=== PATIENT | female | born 1975 | race Caucasian/White ===

== ENCOUNTER 2021-04-11 04:20 | Emergency (ER) | payer MEDICARE, MEDICAID ==
[2021-04-11 04:39] VITALS: BP 144/82; PULSE 114
--- NOTE | 2021-04-11 05:05 | EDM.PDOC ---
ED HPI GENERAL MEDICAL PROBLEM - General Chief Complaint: Abdominal Pain Stated Complaint: FEVER/ABD PAIN Time Seen by Provider: 04/11/21 04:49 Source of Information: Reports: Patient History Limitations: Reports: No Limitations - History of Present Illness INITIAL COMMENTS - FREE TEXT/NARRATIVE: Mindi is a 45-year-old female presenting to the ED with a multitude of complaints including headache, fever, sore throat, decreased appetite, body aches, cough, shortness of breath, abdominal pain, nausea, vomiting, and diarrhea. The patient is unvaccinated for coronavirus. She lives with her son and boyfriend who work outside of the home. She reports that she was recently hospitalized at [facility] where she was told she had a small bowel obstruction. 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 She states that she was hospitalized at [facility] from 03/21/2021 to 03/27/2021 and at that time was told that she needed to have a small bowel resection for partial small bowel obstruction, however, it appears to have resolved without the requirement of surgery. She states that her current symptoms started 2 days ago. She has had a fever as high as 102 F. Abdomen Pain Score (Numeric/FACES): 10 - Related Data Allergies Allergy/AdvReac Type Severity Reaction Status Date / Time latex Allergy Itching Verified 04/11/21 04:40 Home Meds: Home Meds Calcium Carbonate/Vitamin D3 [Calcarb 600 with Vit D] 1 tab PO BID 04/18/13 [History] Cholecalciferol (Vitamin D3) [Vitamin D3] 5,000 unit PO DAILY 04/18/13 [History] Cyanocobalamin (Vitamin B-12) [Liquid B-12] 1,000 mcg PO Q30D 04/18/13 [History] Pediatric Multivit #36/Iron [Vitalets Tablet Chewable] 10 mg PO BID 04/18/13 [History] Vitamin B Complex [B-100 Complex] 1 each PO DAILY 04/18/13 [History] Acetaminophen [Tylenol Arthritis Pain] 650 mg PO ASDIRECTED PRN 08/22/13 [History] Norethindrone-Ethin. Estradiol [Dasetta - Tablet] 35 mg PO DAILY 02/06/14 [History] Docusate Sodium/Sennosides [Senokot-S] 2 each PO BEDTIME 12/21/13 [History] polyethylene glycoL 3350 [Miralax] 17 gm PO DAILY 12/21/13 [History] Social & Family History - Tobacco Use Tobacco Use Status *Q: Heavy Tobacco User Years of Tobacco use: 30 Packs/Tins Daily: 0.5 - Recreational Drug Use Recreational Drug Use: No ED ROS GENERAL - Review of Systems Review Of Systems: See Below Constitutional: Reports: Fever, Chills, Malaise, Weakness, Decreased Appetite HEENT: Reports: Throat Pain Respiratory: Reports: Shortness of Breath, Cough Cardiovascular: Reports: No Symptoms Endocrine: Reports: Fatigue GI/Abdominal: Reports: Abdominal Pain, Diarrhea, Nausea, Vomiting : Reports: No Symptoms Musculoskeletal: Reports: Muscle Pain Skin: Reports: No Symptoms Neurological: Reports: Headache Psychiatric: Reports: Anxiety Hematologic/Lymphatic: Reports: No Symptoms Immunologic: Reports: No Symptoms ED EXAM, GI/ABD - Physical Exam Exam: See Below Exam Limited By: No Limitations General Appearance: Alert, Anxious, Mild Distress, Obese Eyes: Bilateral: EOMI Nose: Normal Inspection, Normal Mucosa Throat/Mouth: Normal Inspection, Normal Oropharynx, Normal Voice, No Airway Compromise Head: Atraumatic, Normocephalic Neck: Normal Inspection, Supple, Non-Tender, Full Range of Motion. No: L ymphadenopathy (R), Lymphadenopathy (L) Respiratory/Chest: No Respiratory Distress, Lungs Clear, Normal Breath Sounds Cardiovascular: Normal Peripheral Pulses, Regular Rate, Rhythm, Tachycardia, Systolic Murmur (2/6 holosystolic murmur in the apex) GI/Abdominal Exam: Normal Bowel Sounds, Tender (Mild diffuse tenderness), Ab normal Bowel Sounds (Diminished bowel sounds). No: Guarding, Rebound Extremities: Normal Inspection, Normal Range of Motion Neurological: Alert, Oriented, Normal Cognition, No Motor/Sensory Deficits Psychiatric: Anxious, Other (Odd effect) Skin Exam: Warm, Dry, Intact, Normal Color Course - Vital Signs Last Recorded V/S: Last Vital Signs Temp 36.8 C 04/11/21 04:38 Pulse 114 H 04/11/21 04:38 Resp 20 04/11/21 04:38 BP 144/82 H 04/11/21 04:38 Pulse Ox 98 04/11/21 04:38 - Orders/Labs/Meds Orders: Active Orders 24 hr Category Date Time Status Abdomen Pelvis wo Cont [CT] Stat Exams 04/11/21 04:50 Ordered CBC WITH AUTO DIFF [HEME] Stat Lab 04/11/21 04:50 Ordered COMPREHENSIVE METABOLIC PN,CMP [CHEM] Stat Lab 04/11/21 04:50 Ordered CORONAVIRUS COVID-19 ANDI [MOLEC] Stat Lab 04/11/21 04:50 Ordered - Radiology Interpretation Free Text/Narrative:: I reviewed the images of the CT of the abdomen pelvis without contrast as well as the report from [facility]. The report is as follows: IMPRESSIONS: 1. The sensitivity and specificity of the exam are severely limited by artifacts from the patient`s inability to maintain a breath hold. 2. Near a small bowel anastomosis in the right lower quadrant on images 100-108, there is a segment of small bowel with moderate concentric wall thickening. Clinical correlation is recommended to exclude Crohn`s disease, enteritis, or focal small bowel ischemia. 3. On image 114, the terminal ileum appears stretched within the right lower quadrant. This configuration of small bowel is new compared to prior examination. The possibility of an internal hernia should be considered. Dictated by Osmany Kendrick MD @ 04/11/2021 6:05:38 AM - Re-Assessments/Exams Free Text/Narrative Re-Assessment/Exam: 04/11/21 05:57 I reviewed the patient's labs with leukocyte count of 5.3, hemoglobin of 12.7, hematocrit of 37.8, and a platelet count of 149,000. She is 74% neutrophils. Her comprehensive metabolic panel is unremarkable with a sodium 137, potassium 3.9, chloride 100, bicarbonate of 25, BUN of 13 with a creatinine of 0.7 and a glucose of 101. The patient is positive for coronavirus. She is unvaccinated and has comorbidities including gastric bypass causing some malabsorption and morbid obesity. She would qualify for monoclonal antibody therapy should she choose. Her abdominal CT without contrast did not demonstrate any sign of obstruction. She had a copious amount of gas throughout the abdomen without evidence for free air. There were no air- fluid levels. I will notify Dr. Hampton's assistant hvac mechanic, Es of the patient's Covid status and her presenting symptoms. The patient is not hypoxic at this time and will likely need to go home to quarantine. A work note has been given to the patient taking her off for the next 10 to 14 days. 04/11/21 06:09 CT of the abdomen and pelvis demonstrated 2 areas of concern in the small bowel, one at the terminal ileum which may represent an internal hernia and the other in a segment of the small bowel that has wall thickening that may represent either Crohn's or an acute inflammatory enteritis. I will discussed both of these endings with Dr. Hampton's assistant hvac mechanic, Es. She reviewed the CT report and agrees that we should probably keep the patient on a liquid diet until she follows up after 14 days. Departure - Departure Time of Disposition: 06:05 Disposition: Home, Self-Care 01 Clinical Impression: COVID-19, Internal hernia - Discharge Information Instructions: COVID-19: What to Do If You Are Sick- [facility] (09/30/2020), COVID-19: Quarantine vs. Isolation - [facility] (07/02/2020), COVID-19: How to Protect Yourself and Others - [facility] Referrals: PCP,None [Primary Care Provider] - Care Plan Goals: Your work-up today has demonstrated that you have developed COVID-19. You are instructed to go home and remain in quarantine for 10 to 14 days. A work note has been provided for you for this. Should you become sufficiently short of breath, significantly dehydrated, or experience generalized weakness and are unable to get out of bed, then you should probably return to the ED for reevaluation. If you decide that you want to receive the monoclonal antibodies, please contact your primary care provider or Es who can schedule that. It needs to be administered within the 1st 10 days from the onset of symptoms to be of benefit. I spoke with Es concerning your CAT scan findings and she would like you to stay on a liquid diet for the next 10 to 14 days until you can follow-up with her in the clinic once your COVID-19 infection has cleared. Sepsis Event Note (ED) - Evaluation Sepsis Screening Result: No Definite Risk - Focused Exam Vital Signs: Vital Signs Temp Pulse Resp BP Pulse Ox 04/11/21 04:38 36.8 C 114 H 20 144/82 H 98 - Problem List & Annotations (1) COVID-19 SNOMED Code(s): 403635249 Code(s): U07.1 - COVID-19 Status: Acute Priority: High Current Visit: Yes (2) Internal hernia SNOMED Code(s): 78936740 Code(s): K45.8 - OTH ABDOMINAL HERNIA WITHOUT OBSTRUCTION OR GANGRENE Status: Acute Priority: High Current Visit: Yes (3) Ricki-en-Y gastrojejunostomy SNOMED Code(s): 964657967 - Ricki-en-Y gastrojejunostomy Status: Chronic Priority: High Current Visit: No Onset Date: 04/16/11 - Problem List Review Problem List Initiated/Reviewed/Updated: Yes - My Orders Last 24 Hours: My Active Orders 04/11/21 04:50 Abdomen Pelvis wo Cont [CT] Stat CBC WITH AUTO DIFF [HEME] Stat COMPREHENSIVE METABOLIC PN,CMP [CHEM] Stat CORONAVIRUS COVID-19 ANDI [MOLEC] Stat - Assessment/Plan Last 24 Hours: My Active Orders 04/11/21 04:50 Abdomen Pelvis wo Cont [CT] Stat CBC WITH AUTO DIFF [HEME] Stat COMPREHENSIVE METABOLIC PN,CMP [CHEM] Stat CORONAVIRUS COVID-19 ANDI [MOLEC] Stat
--- NOTE | 2021-04-11 06:07 | CRLCT ---
For Patients: As a result of the Century Cures Act, medical imaging exams and procedure reports are released immediately into your electronic medical record. You may view this report before your referring provider. If you have questions, please contact your health care provider. INDICATION: Abdominal pain. History recent bowel obstruction TECHNIQUE: CT Abdomen and pelvis without i.v. contrast. Coronal and sagittal reformats were obtained. COMPARISON: 08/18/2014 FINDINGS: The sensitivity and specificity of the exam are severely limited by artifacts from the patient`s inability to maintain a breath hold. Lower chest: Unremarkable. Liver: Unremarkable. Spleen: Unremarkable. Pancreas: Unremarkable. Gallbladder: Previous cholecystectomy noted without significant intra- or extrahepatic biliary ductal dilatation seen. Kidney: Peripelvic cysts are present in the renal sinus bilaterally without significant interval change. Adrenal: Unremarkable. Bowel: Gastric bypass surgery is noted. Surgical clips are present along the medial cecum which may be due to prior appendectomy. Near a small bowel anastomosis in the right lower quadrant on images 100-108, there is a segment of small bowel with moderate concentric wall thickening. On image 114, the terminal ileum appears stretched within the right lower quadrant. Moderate gaseous distention of the redundant colon is present which may be due to colonic ileus or prolonged supine positioning. Vascular: Unremarkable. Lymph: Unremarkable. Peritoneum: Unremarkable. No pneumoperitoneum is seen. No significant ascites is noted. Pelvis: Unremarkable. Soft tissue: Unremarkable. Bone: Unremarkable for age. IMPRESSIONS: 1. The sensitivity and specificity of the exam are severely limited by artifacts from the patient`s inability to maintain a breath hold. 2. Near a small bowel anastomosis in the right lower quadrant on images 100-108, there is a segment of small bowel with moderate concentric wall thickening. Clinical correlation is recommended to exclude Crohn`s disease, enteritis, or focal small bowel ischemia. 3. On image 114, the terminal ileum appears stretched within the right lower quadrant. This configuration of small bowel is new compared to prior examination. The possibility of an internal hernia should be considered. Dictated by Osmany Kendrick MD @ 04/11/2021 6:05:38 AM Please note that all CT scans at this facility use dose modulation, iterative reconstruction, and/or weight-based dosing when appropriate to reduce radiation dose to as low as reasonably achievable. Dictated by: Osmany Kendrick MD @ 04/11/2021 06:05:45 (Electronically Signed)
== END 2021-04-11 06:29 | disposition home or self-care (01) ==
LOC: JP.ED 04:20
DX: U07.1 COVID-19 (principal); K46.9 Unspecified abdominal hernia without obstruction or gangrene; F17.210 Nicotine dependence, cigarettes, uncomplicated; Z91.040 Latex allergy status; Z79.899 Other long term (current) drug therapy
CPT/HCPCS: 36415; 74176; 80053; 85025; 99284; U0002

== ENCOUNTER 2022-04-24 09:45 | Inpatient (IN) | payer MEDICARE, MEDICAID ==
[2022-04-24] MEDS ORDERED: Iopamidol 612 MG/ML 100 ML Bottle IV SCH (10:30)
[2022-04-24] MEDS ORDERED: Ketorolac 30 MG/ML SDV ONE (10:45)
[2022-04-24] MEDS ORDERED: Sodium Chloride 0.9% 1,000 ML IV ONE (10:45)
[2022-04-24] MEDS ORDERED: Ondansetron 4 MG/2 ML SDV ONE (10:45)
[2022-04-25] MEDS ORDERED: Lactated Ringers 1,000 ML IV ONE (08:00)
[2022-04-25] MEDS ORDERED: Glycopyrrolate 0.2 MG/ML 5 ML MDV ONE (08:00)
[2022-04-25] MEDS ORDERED: Rocuronium 50 MG/5 ML Vial ONE (08:00)
[2022-04-25] MEDS ORDERED: Lidocaine 1% with EPINEPHrine 1:100,000 50 ML MDV ONE (08:00)
[2022-04-25] MEDS ORDERED: Succinylcholine 200 MG/10 ML MDV ONE (08:00)
[2022-04-25] MEDS ORDERED: Ondansetron 4 MG/2 ML SDV ONE (08:00)
[2022-04-25] MEDS ORDERED: Bupivacaine 0.5% 50 ML MDV ONE (08:00)
[2022-04-25] MEDS ORDERED: Meropenem 500 MG SDV ONE (08:00)
[2022-04-25] MEDS ORDERED: Neostigmine Methylsulfate 1 MG/ML 5 ML Syringe ONE (08:00)
[2022-04-25] MEDS ORDERED: fentaNYL 100 MCG/2 ML SDV ONE ×3 (08:00)
[2022-04-25] MEDS ORDERED: Dexamethasone 4 MG/ML SDV ONE (08:00)
[2022-04-25] MEDS ORDERED: Propofol 200 MG/20 ML SDV ONE (08:00)
[2022-04-25] MEDS ORDERED: Ketamine 18 MG in Sodium Chloride 0.9% 19.82 ML IV SCH (10:00)
[2022-04-25] MEDS ORDERED: Ketamine 500 MG/5 ML MDV IV SCH (10:00)
[2022-04-26] MEDS ORDERED: Ketamine 18 MG in Sodium Chloride 0.9% 19.82 ML IV SCH (10:00)
[2022-04-26] MEDS ORDERED: Ketamine 500 MG/5 ML MDV IV SCH (10:00)
[2022-04-29] MEDS ORDERED: Ketamine 500 MG/5 ML MDV IV SCH (09:45)
[2022-04-29] MEDS ORDERED: Ketamine 18 MG in Sodium Chloride 0.9% 19.82 ML IV SCH (09:45)
[2022-05-20 16:40] LABS: ESTIMATED GFR 109 mL/min (>60)
[2022-05-23 13:53] LABS: ESTIMATED GFR 93 mL/min (>60)
[2022-05-25 04:56] LABS: NICOTINAMIDE SEE SEP RPT; NICOTINIC ACID SEE SEP RPT; VITAMIN E(ALPHA TOCOPHEROL) SEE SEP RPT; VITAMIN E(GAMMA TOCOPHEROL) SEE SEP RPT
== END 2022-04-29 10:00 | disposition home or self-care (01) | DRG 330 ==
LOC: JP.ED 09:45 → JP.ZCENSUS 13:46
PROVIDERS: ADMIT Student in an Organized Health Care Education/Training Program; ATTEND Student in an Organized Health Care Education/Training Program
PROC: 0DB80ZZ Excision of Small Intestine, Open Approach (ICD-10-PCS; principal; 2022-04-25)
PROC: 0DQ80ZZ Repair Small Intestine, Open Approach (ICD-10-PCS; 2022-04-25)
PROC: 3E0M05Z Introduction of Adhesion Barrier into Peritoneal Cavity, Open Approach (ICD-10-PCS; 2022-04-25)
PROC: 0DJ08ZZ Inspection of Upper Intestinal Tract, Via Natural or Artificial Opening Endoscopic (ICD-10-PCS; 2022-04-25)
DX: K95.89 Other complications of other bariatric procedure (principal); K56.600 Partial intestinal obstruction, unspecified as to cause; Y83.8 Other surgical procedures as the cause of abnormal reaction of the patient, or of later complication, without mention of misadventure at the time of the procedure; R33.9 Retention of urine, unspecified; F32.A Depression, unspecified; Z90.49 Acquired absence of other specified parts of digestive tract; Z98.84 Bariatric surgery status; Z88.8 Allergy status to other drugs, medicaments and biological substances; Z91.040 Latex allergy status
CPT/HCPCS: 36415; 51798; 74177; 80048; 80053; 82180; 82306; 82607; 82728; 82746; 83540; 83690; 83735; 84100; 84207; 84425; 84446; 84590; 84591; 84597; 85025; 85027; 85610; 88307; 94762; J0171; J0330; J1100; J1885; J2020; J2185; J2405; J2704; J2710; J2795; J3010; J3490; J7030; J7120; Q9967; U0002

== ENCOUNTER 2022-05-16 11:55 | Inpatient (IN) | payer MEDICARE, MEDICAID ==
[2022-05-16] MEDS ORDERED: Sodium Chloride 0.9% 10 ML Syringe FLUSH PRN (15:57)
[2022-05-16] MEDS ORDERED: fentaNYL 100 MCG/2 ML SDV IVPUSH ONE (15:58)
[2022-05-16] MEDS ORDERED: Ondansetron 4 MG/2 ML SDV IVPUSH ONE (15:58)
[2022-05-16] MEDS ORDERED: Lactated Ringers 1,000 ML IV SCH (16:00)
[2022-05-16 16:33] LABS: ESTIMATED GFR 109 mL/min (>60)
[2022-05-16] MEDS ORDERED: fentaNYL 50 MCG/ML SDV IVPUSH PRN (17:18)
[2022-05-16] MEDS: Lactated Ringers 1,000 ML IV SCH (18:35)
[2022-05-16] MEDS: hydrOXYzine HCl 25 MG Tab PO PRN (19:27)
[2022-05-16] MEDS ORDERED: Iopamidol 612 MG/ML 100 ML Bottle IV PRN (21:35)
[2022-05-16] MEDS ORDERED: Sodium Chloride 0.9% 50 ML IV SCH (21:45)
[2022-05-16] MEDS: Celecoxib 200 MG Cap PO SCH (22:01)
[2022-05-16] MEDS: Calcium Carbonate/Vitamin D3 1500 MG-400 Units Tab PO SCH (22:01)
[2022-05-16] MEDS: Multivitamins with Iron Tab.Chew PO SCH (22:03)
[2022-05-17] MEDS: Lactated Ringers 1,000 ML IV SCH ×3 (02:54→20:48)
[2022-05-17] MEDS ORDERED: Naloxone 0.4 MG/ML SDV IVPUSH PRN (03:12)
[2022-05-17] MEDS: HYDROmorphone/Normal Saline 6 MG/30 ML PCA Vial IV PRN ×2 (03:55→16:40)
[2022-05-17 04:53] LABS: ESTIMATED GFR 113 mL/min (>60)
[2022-05-17] MEDS: Ondansetron 4 MG/2 ML SDV IV PRN ×3 (05:21→17:20)
[2022-05-17] MEDS ORDERED: Acetaminophen 325 MG Tab PO PRN (07:04)
[2022-05-17] MEDS: Multivitamins with Iron Tab.Chew PO SCH ×2 (09:09→20:50)
[2022-05-17] MEDS: Cholecalciferol (Vitamin D3) 25 MCG Tab PO SCH (09:09)
[2022-05-17] MEDS: Calcium Carbonate/Vitamin D3 1500 MG-400 Units Tab PO SCH ×2 (09:09→20:50)
[2022-05-17] MEDS: Celecoxib 200 MG Cap PO SCH ×2 (09:09→20:50)
[2022-05-17] MEDS: Vitamin B Complex Tab PO SCH (09:09)
[2022-05-17] MEDS: Linezolid 600 MG in Premix Bag 1 BAG IV SCH ×2 (09:10→20:48)
[2022-05-17] MEDS ORDERED: Polyethylene Glycol 3350 Powder 119 GM Bottle PO ONE (10:00)
[2022-05-17] MEDS: Piperacillin/Tazobactam/Dext 3.375 GM in Premix Bag 1 BAG IV SCH ×3 (10:35→22:05)
[2022-05-17] MEDS ORDERED: Bisacodyl 5 MG Tab PO ONE (16:00)
[2022-05-18] MEDS: Piperacillin/Tazobactam/Dext 3.375 GM in Premix Bag 1 BAG IV SCH (03:43)
[2022-05-18] MEDS: Cyclobenzaprine 10 MG Tab PO PRN ×2 (04:03→20:18)
[2022-05-18 04:43] LABS: ESTIMATED GFR 81 mL/min (>60)
[2022-05-18] MEDS: hydrOXYzine HCl 25 MG Tab PO PRN (07:25)
[2022-05-18] MEDS: HYDROmorphone/Normal Saline 6 MG/30 ML PCA Vial IV PRN ×2 (07:44→19:51)
[2022-05-18] MEDS: Linezolid 600 MG in Premix Bag 1 BAG IV SCH ×2 (08:01→20:07)
[2022-05-18] MEDS ORDERED: Iopamidol 612 MG/ML 100 ML Bottle IV PRN (09:05)
[2022-05-18] MEDS ORDERED: Sodium Chloride 0.9% 100 ML IV SCH (09:15)
[2022-05-18] MEDS: Vitamin B Complex Tab PO SCH (09:38)
[2022-05-18] MEDS: Celecoxib 200 MG Cap PO SCH ×2 (09:38→20:07)
[2022-05-18] MEDS: Cholecalciferol (Vitamin D3) 25 MCG Tab PO SCH (09:38)
[2022-05-18] MEDS: Calcium Carbonate/Vitamin D3 1500 MG-400 Units Tab PO SCH ×2 (09:38→20:07)
[2022-05-18] MEDS: Multivitamins with Iron Tab.Chew PO SCH ×2 (09:38→20:08)
[2022-05-18] MEDS: Meropenem 1 GM in Sodium Chloride 0.9% 100 ML IV SCH ×2 (10:32→17:23)
[2022-05-18] MEDS: Lactated Ringers 1,000 ML IV SCH (17:24)
[2022-05-19] MEDS: Meropenem 1 GM in Sodium Chloride 0.9% 100 ML IV SCH ×2 (01:25→10:36)
[2022-05-19] MEDS: Lactated Ringers 1,000 ML IV SCH (03:50)
[2022-05-19 05:14] LABS: ESTIMATED GFR 93 mL/min (>60)
[2022-05-19] MEDS: HYDROmorphone/Normal Saline 6 MG/30 ML PCA Vial IV PRN ×2 (05:39→18:49)
[2022-05-19] MEDS: Linezolid 600 MG in Premix Bag 1 BAG IV SCH (09:08)
[2022-05-19] MEDS ORDERED: Rocuronium 50 MG/5 ML Vial ONE (09:56)
[2022-05-19] MEDS ORDERED: Ondansetron 4 MG/2 ML SDV ONE (09:56)
[2022-05-19] MEDS ORDERED: Dexamethasone 4 MG/ML SDV ONE (09:56)
[2022-05-19] MEDS ORDERED: Succinylcholine 200 MG/10 ML MDV ONE (09:56)
[2022-05-19] MEDS ORDERED: Propofol 200 MG/20 ML SDV ONE (09:56)
[2022-05-19] MEDS ORDERED: Glycopyrrolate 0.2 MG/ML 5 ML MDV ONE (09:56)
[2022-05-19] MEDS ORDERED: Neostigmine Methylsulfate 1 MG/ML 5 ML Syringe ONE (09:56)
[2022-05-19] MEDS: Celecoxib 200 MG Cap PO SCH (10:28)
[2022-05-19] MEDS: Calcium Carbonate/Vitamin D3 1500 MG-400 Units Tab PO SCH (10:28)
[2022-05-19] MEDS: Multivitamins with Iron Tab.Chew PO SCH (10:29)
[2022-05-19] MEDS: Cholecalciferol (Vitamin D3) 25 MCG Tab PO SCH (10:29)
[2022-05-19] MEDS: Vitamin B Complex Tab PO SCH (10:29)
[2022-05-19] MEDS ORDERED: Ketamine 500 MG/5 ML MDV IV SCH ×3 (11:00)
[2022-05-19] MEDS ORDERED: Ropivacaine 50 ML, dexAMETHasone 8 MG, EPINEPHrine 0.4 MG, Sodium Chloride 0.9% 27.6 ML NERVRT SCH ×4 (11:00)
[2022-05-19] MEDS ORDERED: Ketamine 18 MG in Sodium Chloride 0.9% 19.82 ML IV SCH (11:00)
[2022-05-19] MEDS ORDERED: Lidocaine 1% with EPINEPHrine 1:100,000 50 ML MDV ONE (12:12)
[2022-05-19] MEDS ORDERED: Meropenem 500 MG SDV ONE (12:12)
[2022-05-19] MEDS ORDERED: Bupivacaine 0.5% 50 ML MDV ONE (12:12)
[2022-05-19] MEDS ORDERED: cefOXitin 2 GM Vial ONE (12:12)
[2022-05-19] MEDS ORDERED: Lactated Ringers 1,000 ML ONE (12:44)
[2022-05-19] MEDS ORDERED: Linezolid 600 MG/300 ML Premix Bag IRR ONE (13:31)
[2022-05-19] MEDS ORDERED: Sugammadex Sodium 200 MG/2 ML VIAL ONE (14:14)
[2022-05-19] MEDS ORDERED: Naloxone 0.4 MG/ML SDV IVPUSH PRN (15:05)
[2022-05-19] MEDS ORDERED: hydrOXYzine HCL 100 MG/2 ML SDV IM PRN (15:15)
[2022-05-19] MEDS ORDERED: Metoclopramide 10 MG/2 ML SDV IVPUSH PRN (15:15)
[2022-05-19] MEDS ORDERED: Labetalol 20 MG/4 ML Syringe IVPUSH PRN (15:15)
[2022-05-19] MEDS ORDERED: Acetaminophen 500 MG Tab PO PRN (15:15)
[2022-05-19] MEDS ORDERED: diphenhydrAMINE 50 MG/ML SDV IVPUSH PRN (15:15)
[2022-05-19] MEDS: Acetaminophen 500 MG Tab PO SCH ×2 (15:54→21:30)
[2022-05-19] MEDS ORDERED: MVI, Adult with Vitamin K 10 ML, Thiamine 200 MG, Zinc/Copper/Manganese/Selenium 1 ML i... IV SCH ×4 (16:00)
[2022-05-19] MEDS ORDERED: Pantoprazole 40 MG Vial IVPUSH SCH (16:00)
[2022-05-19] MEDS: Meropenem 500 MG in Sodium Chloride 0.9% 50 ML IV SCH ×2 (17:23→23:30)
[2022-05-19] MEDS: Heparin Sodium 5,000 Units/ML Vial SUBCUT SCH (21:30)
[2022-05-19] MEDS: Dextrose 5%-Lactated Ringers 1,000 ML IV SCH (23:31)
[2022-05-20] MEDS: Cyclobenzaprine 10 MG Tab PO PRN (00:35)
[2022-05-20] MEDS ORDERED: Iopamidol 612 MG/ML 50 ML SDV PO STA (02:50)
[2022-05-20] MEDS: Acetaminophen 500 MG Tab PO SCH ×3 (05:01→21:17)
[2022-05-20] MEDS: Meropenem 500 MG in Sodium Chloride 0.9% 50 ML IV SCH ×2 (05:01→13:43)
[2022-05-20] MEDS: HYDROmorphone/Normal Saline 6 MG/30 ML PCA Vial IV PRN (05:45)
[2022-05-20] MEDS ORDERED: Ondansetron 4 MG Tab.DIS PO PRN (07:14)
[2022-05-20] MEDS ORDERED: hydrOXYzine HCl 25 MG Tab PO PRN (07:19)
[2022-05-20] MEDS: Dextrose 5%-Lactated Ringers 1,000 ML IV SCH (07:41)
[2022-05-20] MEDS: Docusate Sodium 100 MG Cap PO SCH ×2 (08:19→20:45)
[2022-05-20] MEDS: Bisacodyl 5 MG Tab PO SCH ×2 (08:19→20:45)
[2022-05-20] MEDS: Celecoxib 200 MG Cap PO SCH ×2 (08:20→20:45)
[2022-05-20] MEDS: SCOPOLAMINE PATCH CHECK TOP SCH (08:20)
[2022-05-20] MEDS: Heparin Sodium 5,000 Units/ML Vial SUBCUT SCH ×2 (09:02→20:45)
[2022-05-20] MEDS: oxyCODONE 5 MG Tab PO PRN ×2 (10:03→19:42)
[2022-05-20] MEDS ORDERED: Benzocaine/Cetylpyridinium/Menthol Lozenge MUCMEM PRN (15:22)
[2022-05-20] MEDS ORDERED: Pantoprazole 40 MG Tab.CR PO SCH (16:00)
[2022-05-21] MEDS: oxyCODONE 5 MG Tab PO PRN (03:38)
[2022-05-21] MEDS: Acetaminophen 500 MG Tab PO SCH (05:50)
[2022-05-21 07:12] VITALS: BP 128/81; PULSE 62
[2022-05-21 07:18] LABS: ESTIMATED GFR 109 mL/min (>60)
[2022-05-21] MEDS: Bisacodyl 5 MG Tab PO SCH (08:27)
[2022-05-21] MEDS: Cyclobenzaprine 10 MG Tab PO PRN (08:27)
[2022-05-21] MEDS: Heparin Sodium 5,000 Units/ML Vial SUBCUT SCH (08:28)
[2022-05-21] MEDS: SCOPOLAMINE PATCH CHECK TOP SCH (08:28)
[2022-05-21] MEDS: Docusate Sodium 100 MG Cap PO SCH (08:28)
[2022-05-21] MEDS: Celecoxib 200 MG Cap PO SCH (08:28)
[2022-05-21] MEDS ORDERED: Cyanocobalamin (Vitamin B12) 1,000 MCG/ML SDV IM ONE (09:00)
[2022-05-28] MEDS ORDERED: Cyanocobalamin (Vitamin B12) 1,000 MCG/ML SDV IM SCH (09:00)
== END 2022-05-21 08:53 | disposition home or self-care (01) | DRG 330 ==
LOC: JP.ED 11:55 → JP.MS 17:15 → OBSVTOIN 05-18 09:43
PROVIDERS: ADMIT Surgery; ATTEND Surgery
PROC: 0DB80ZZ Excision of Small Intestine, Open Approach (ICD-10-PCS; principal; 2022-05-19)
PROC: 0DBW0ZZ Excision of Peritoneum, Open Approach (ICD-10-PCS; 2022-05-19)
PROC: 3E0M05Z Introduction of Adhesion Barrier into Peritoneal Cavity, Open Approach (ICD-10-PCS; 2022-05-19)
DX: R10.84 Generalized abdominal pain (principal); K95.89 Other complications of other bariatric procedure; K56.50 Intestinal adhesions [bands], unspecified as to partial versus complete obstruction; E66.9 Obesity, unspecified; N39.0 Urinary tract infection, site not specified; K66.9 Disorder of peritoneum, unspecified; Z20.822 Contact with and (suspected) exposure to COVID-19; Z98.890 Other specified postprocedural states; K21.9 Gastro-esophageal reflux disease without esophagitis; M54.9 Dorsalgia, unspecified; G89.29 Other chronic pain; F41.9 Anxiety disorder, unspecified; F32.A Depression, unspecified; Z90.49 Acquired absence of other specified parts of digestive tract; Z88.5 Allergy status to narcotic agent; Z91.040 Latex allergy status; F17.210 Nicotine dependence, cigarettes, uncomplicated; F12.10 Cannabis abuse, uncomplicated; Z79.899 Other long term (current) drug therapy
CPT/HCPCS: 36415 ×3; 51702; 74018 ×2; 74177 ×3; 80053 ×3; 81001; 82150; 83605; 83690 ×2; 85025 ×2; 85027; 87086; 87088; 87186; 90686; A9270 ×23; G0008; J1170 ×3; J2020 ×3; J2405 ×4; J2543 ×4; J3010 ×2; J3490 ×3; J7120 ×5; Q9967 ×2; U0002; 74240; 74240-26; 83735; 84100; 88305; 88307; 96361; 96365; 96366; 96367; 96374; 96375; 96376; 99284; 99285-25; C9113; G0378; J0171; J0330; J0694; J1100; J1644; J2185; J2704; J2710; J2795; J3411; J3420; J7121

== ENCOUNTER 2022-08-27 22:15 | Inpatient (IN) | payer MEDICARE, MEDICAID ==
[2022-08-27] MEDS ORDERED: Sodium Chloride 0.9% 10 ML Syringe FLUSH PRN ×2 (22:49→23:24)
[2022-08-27] MEDS ORDERED: Ondansetron 4 MG/2 ML SDV IVPUSH ONE (22:51)
[2022-08-27] MEDS: Sodium Chloride 0.9% 1,000 ML IV SCH (23:05)
[2022-08-27] MEDS ORDERED: Iopamidol 612 MG/ML 100 ML Bottle IV PRN (23:24)
[2022-08-27 23:26] LABS: ESTIMATED GFR 71 mL/min (>60)
[2022-08-27] MEDS ORDERED: Sodium Chloride 0.9% 50 ML IV SCH (23:30)
[2022-08-28] MEDS ORDERED: Metoclopramide 10 MG/2 ML SDV IVPUSH ONE (00:15)
[2022-08-28 00:19] LABS: CORONAVIRUS COVID-19 NAA NEGATIVE (NEGATIVE)
[2022-08-28] MEDS ORDERED: Acetaminophen 325 MG Tab PO PRN (01:14)
[2022-08-28] MEDS ORDERED: oxyCODONE 5 MG Tab PO PRN (01:14)
[2022-08-28] MEDS ORDERED: Promethazine 12.5 MG in Sodium Chloride 0.9% 50 ML IV PRN (01:14)
[2022-08-28] MEDS: Sodium Chloride 0.9% 1,000 ML IV SCH (02:43)
[2022-08-28] MEDS: fentaNYL 50 MCG/ML SDV IVPUSH PRN ×2 (02:45→08:20)
[2022-08-28] MEDS ORDERED: Naloxone 0.4 MG/ML SDV IV PRN (09:00)
[2022-08-28] MEDS: Acetaminophen 325 MG Tab PO PRN ×3 (10:03→21:02)
[2022-08-28] MEDS: Dextrose 5%-Lactated Ringers 1,000 ML IV SCH ×2 (18:04→18:05)
[2022-08-28] MEDS: HYDROmorphone/Normal Saline 6 MG/30 ML PCA Vial IV PRN (23:05)
[2022-08-29] MEDS: Dextrose 5%-Lactated Ringers 1,000 ML IV SCH ×2 (02:03→12:41)
[2022-08-29 05:12] LABS: ESTIMATED GFR 109 mL/min (>60)
[2022-08-29] MEDS ORDERED: Ondansetron 4 MG/2 ML SDV IVPUSH ONE (06:54)
[2022-08-29] MEDS ORDERED: Ketamine 20 MG in Sodium Chloride 0.9% 19.8 ML IV SCH (07:00)
[2022-08-29] MEDS ORDERED: cefOXitin 2 GM in Sodium Chloride 0.9% 50 ML IV ONE (07:00)
[2022-08-29] MEDS ORDERED: Ketamine 500 MG/5 ML MDV IV SCH (07:00)
[2022-08-29] MEDS ORDERED: Ropivacaine 50 ML, dexAMETHasone 8 MG, EPINEPHrine 0.4 MG, Sodium Chloride 0.9% 27.6 ML NERVRT SCH ×4 (07:00)
[2022-08-29] MEDS ORDERED: Lidocaine 1% with EPINEPHrine 1:100,000 50 ML MDV ONE (07:08)
[2022-08-29] MEDS ORDERED: Meropenem 500 MG SDV ONE (07:08)
[2022-08-29] MEDS ORDERED: Bupivacaine 0.5% 50 ML MDV ONE (07:08)
[2022-08-29] MEDS ORDERED: fentaNYL 250 MCG/5 ML SDV ONE (07:30)
[2022-08-29] MEDS ORDERED: Rocuronium 50 MG/5 ML Vial ONE (07:30)
[2022-08-29] MEDS ORDERED: Succinylcholine 200 MG/10 ML MDV ONE (07:30)
[2022-08-29] MEDS ORDERED: Ondansetron 4 MG/2 ML SDV ONE (07:30)
[2022-08-29] MEDS ORDERED: Glycopyrrolate 0.2 MG/ML 5 ML MDV ONE (07:30)
[2022-08-29] MEDS ORDERED: Dexamethasone 4 MG/ML SDV ONE (07:30)
[2022-08-29] MEDS ORDERED: Neostigmine Methylsulfate 1 MG/ML 5 ML Syringe ONE (07:30)
[2022-08-29] MEDS ORDERED: Propofol 200 MG/20 ML SDV ONE (07:30)
[2022-08-29] MEDS ORDERED: Lactated Ringers 1,000 ML ONE (08:57)
[2022-08-29] MEDS ORDERED: fentaNYL 100 MCG/2 ML SDV ONE (10:19)
[2022-08-29] MEDS ORDERED: Scopolamine 1.5 MG Transdermal Patch ONE (10:29)
[2022-08-29] MEDS ORDERED: hydrOXYzine HCL 100 MG/2 ML SDV IM PRN (12:00)
[2022-08-29] MEDS ORDERED: Pantoprazole 40 MG Vial IVPUSH SCH (12:00)
[2022-08-29] MEDS ORDERED: Metoclopramide 10 MG/2 ML SDV IVPUSH PRN (12:00)
[2022-08-29] MEDS ORDERED: Labetalol 20 MG/4 ML Syringe IVPUSH PRN (12:00)
[2022-08-29] MEDS ORDERED: Ondansetron 4 MG/2 ML SDV IVPUSH PRN (12:00)
[2022-08-29] MEDS ORDERED: Acetaminophen 500 MG Tab PO PRN (12:00)
[2022-08-29] MEDS: Magnesium Sulfate/Water 2 GM in Premix Bag 1 BAG IV SCH ×2 (14:52→19:59)
[2022-08-29] MEDS: HYDROmorphone/Normal Saline 6 MG/30 ML PCA Vial IV PRN (16:30)
[2022-08-29] MEDS: cefOXitin 2 GM in Sodium Chloride 0.9% 50 ML IV SCH ×2 (17:02→22:39)
[2022-08-29] MEDS: MVI, Adult with Vitamin K 10 ML, Thiamine 200 MG, Zinc/Copper/Manganese/Selenium 1 ML i... IV SCH ×4 (17:02)
[2022-08-29] MEDS: Acetaminophen 500 MG Tab PO SCH (18:00)
[2022-08-29] MEDS: Cyclobenzaprine 10 MG Tab PO PRN (19:55)
[2022-08-29] MEDS: diphenhydrAMINE 50 MG/ML SDV IVPUSH PRN (19:56)
[2022-08-29] MEDS: Heparin Sodium 5,000 Units/ML Vial SUBCUT SCH (20:00)
[2022-08-30] MEDS: Dextrose 5%-Lactated Ringers 1,000 ML IV SCH (01:33)
[2022-08-30] MEDS: Magnesium Sulfate/Water 2 GM in Premix Bag 1 BAG IV SCH ×4 (01:34→20:09)
[2022-08-30] MEDS ORDERED: Iopamidol 612 MG/ML 30 ML SDV PO STA (01:42)
[2022-08-30] MEDS: Acetaminophen 500 MG Tab PO SCH ×3 (02:00→17:46)
[2022-08-30] MEDS: cefOXitin 2 GM in Sodium Chloride 0.9% 50 ML IV SCH ×4 (03:40→22:05)
[2022-08-30] MEDS: HYDROmorphone/Normal Saline 6 MG/30 ML PCA Vial IV PRN (07:39)
[2022-08-30] MEDS ORDERED: Dextrose 5%-Lactated Ringers 1,000 ML IV SCH (07:45)
[2022-08-30] MEDS: Docusate Sodium 100 MG Cap PO SCH ×2 (08:05→20:15)
[2022-08-30] MEDS: Celecoxib 200 MG Cap PO SCH ×2 (08:05→20:15)
[2022-08-30] MEDS: Heparin Sodium 5,000 Units/ML Vial SUBCUT SCH ×2 (08:05→20:11)
[2022-08-30] MEDS: SCOPOLAMINE PATCH CHECK TOP SCH (08:05)
[2022-08-30] MEDS: Bisacodyl 5 MG Tab PO SCH ×2 (08:05→20:15)
[2022-08-30] MEDS ORDERED: Pantoprazole 40 MG Vial IVPUSH SCH (09:00)
[2022-08-30] MEDS: diphenhydrAMINE 50 MG/ML SDV IVPUSH PRN ×2 (14:28→22:08)
[2022-08-30] MEDS: MVI, Adult with Vitamin K 10 ML, Thiamine 200 MG, Zinc/Copper/Manganese/Selenium 1 ML i... IV SCH ×4 (16:03)
[2022-08-30] MEDS: Cyclobenzaprine 10 MG Tab PO PRN (20:19)
[2022-08-31] MEDS: HYDROmorphone/Normal Saline 6 MG/30 ML PCA Vial IV PRN (00:06)
[2022-08-31] MEDS: Acetaminophen 500 MG Tab PO SCH ×3 (02:48→17:21)
[2022-08-31] MEDS: Magnesium Sulfate/Water 2 GM in Premix Bag 1 BAG IV SCH ×2 (02:49→07:08)
[2022-08-31] MEDS: Pantoprazole 40 MG Tab.CR PO SCH (07:08)
[2022-08-31] MEDS: Heparin Sodium 5,000 Units/ML Vial SUBCUT SCH ×2 (07:08→20:42)
[2022-08-31] MEDS: Docusate Sodium 100 MG Cap PO SCH ×2 (08:03→20:42)
[2022-08-31] MEDS: Bisacodyl 5 MG Tab PO SCH ×2 (08:03→20:42)
[2022-08-31] MEDS: Celecoxib 200 MG Cap PO SCH ×2 (08:03→20:42)
[2022-08-31] MEDS: SCOPOLAMINE PATCH CHECK TOP SCH (08:04)
[2022-08-31] MEDS ORDERED: Cyanocobalamin (Vitamin B12) 1,000 MCG/ML SDV IM ONE (09:00)
[2022-08-31] MEDS: buPROPion 150 MG Tab.ER PO SCH (09:39)
[2022-08-31] MEDS: HYDROmorphone 2 MG Tab PO PRN ×2 (12:42→22:55)
[2022-08-31] MEDS: Cyclobenzaprine 10 MG Tab PO PRN (15:40)
[2022-09-01] MEDS: Acetaminophen 500 MG Tab PO SCH (03:09)
[2022-09-01] MEDS: Pantoprazole 40 MG Tab.CR PO SCH (07:31)
[2022-09-01] MEDS: Heparin Sodium 5,000 Units/ML Vial SUBCUT SCH (07:31)
[2022-09-01 07:35] VITALS: BP 116/72; PULSE 71
[2022-09-01] MEDS: Celecoxib 200 MG Cap PO SCH (08:47)
[2022-09-01] MEDS: buPROPion 150 MG Tab.ER PO SCH (08:47)
[2022-09-01] MEDS: Bisacodyl 5 MG Tab PO SCH (08:48)
[2022-09-01] MEDS: Docusate Sodium 100 MG Cap PO SCH (08:48)
[2022-09-01] MEDS: HYDROmorphone 2 MG Tab PO PRN (09:03)
== END 2022-09-01 09:11 | disposition home or self-care (01) | DRG 329 ==
LOC: JP.ED 22:15 → JP.MS 08-28 01:14
PROVIDERS: ADMIT Surgery; ATTEND Surgery
PROC: 0DB80ZZ Excision of Small Intestine, Open Approach (ICD-10-PCS; principal; 2022-08-29)
PROC: 0DBP0ZZ Excision of Rectum, Open Approach (ICD-10-PCS; 2022-08-29)
PROC: 0DBN0ZZ Excision of Sigmoid Colon, Open Approach (ICD-10-PCS; 2022-08-29)
PROC: 0FB20ZX Excision of Left Lobe Liver, Open Approach, Diagnostic (ICD-10-PCS; 2022-08-29)
PROC: 0DBW0ZZ Excision of Peritoneum, Open Approach (ICD-10-PCS; 2022-08-29)
PROC: 3E0M05Z Introduction of Adhesion Barrier into Peritoneal Cavity, Open Approach (ICD-10-PCS; 2022-08-29)
DX: K56.50 Intestinal adhesions [bands], unspecified as to partial versus complete obstruction (principal); Z98.84 Bariatric surgery status; E86.0 Dehydration; K95.89 Other complications of other bariatric procedure; E66.9 Obesity, unspecified; K56.2 Volvulus; K91.30 Postprocedural intestinal obstruction, unspecified as to partial versus complete; Z20.822 Contact with and (suspected) exposure to COVID-19; M54.9 Dorsalgia, unspecified; G89.29 Other chronic pain; F41.9 Anxiety disorder, unspecified; F32.A Depression, unspecified; K21.9 Gastro-esophageal reflux disease without esophagitis; Z90.49 Acquired absence of other specified parts of digestive tract; Z88.5 Allergy status to narcotic agent; Z91.040 Latex allergy status; Z79.899 Other long term (current) drug therapy; Z86.16 Personal history of COVID-19
CPT/HCPCS: 0241U; 36415; 43752; 74018; 74177; 74240; 80053; 82525; 82607; 82728; 82746; 83605; 83690; 83735; 84100; 84425; 84590; 84630; 85025; 96361; 96374; 96375; 99285; A9270-GY; C9113; J0171; J0330; J0694; J1100; J1170; J1200; J1644; J2020; J2185; J2405; J2704; J2710; J2765; J2795; J3010; J3411; J3420; J3475; J3490; J7030; J7120; J7121; Q9967

== ENCOUNTER 2022-12-03 09:55 | Emergency (ER) | payer MEDICARE, MEDICAID ==
[2022-12-03 10:15] VITALS: BP 118/78; PULSE 81
[2022-12-03] MEDS ORDERED: Ondansetron 4 MG/2 ML SDV IVPUSH ONE (10:40)
[2022-12-03] MEDS ORDERED: HYDROmorphone 0.5 MG/0.5 ML Syringe IVPUSH ONE (10:40)
[2022-12-03] MEDS ORDERED: Sodium Chloride 0.9% 1,000 ML IV SCH (10:45)
[2022-12-03 10:50] LABS: HEMATOCRIT 36.6 % (34.3-46.0); HEMOGLOBIN 11.5 g/dL (11.2-15.5); MEAN CORPUSCULAR HGB CONC 31.4 g/dL (31.6-35.5); MEAN CORPUSCULAR VOLUME 92.2 fL (81.4-99.0); RED BLOOD CELL COUNT 3.97 M/uL (3.77-5.24); WHITE BLOOD CELL COUNT,WBC 8.1 K/uL (3.2-11.0)
[2022-12-03 11:11] LABS: A/G RATIO 0.9 (1.2-2.2); ALANINE AMINOTRANSFERASE,ALT 21 U/L (12-78); ALBUMIN 2.8 g/dL (3.4-5.0); ALKALINE PHOSPHATASE 80 U/L (46-116); ANION GAP 9.6 mmol/L (5.0-14.0); ASPARTATE AMNIOTRANSFERASE,AST 15 U/L (15-37); BILIRUBIN TOTAL 0.4 mg/dL (0.2-1.0); BLOOD UREA NITROGEN,BUN 15 mg/dL (7-18); CALCIUM 8.3 mg/dL (8.5-10.1); CARBON DIOXIDE,CO2 29 mmol/L (21-32); CHLORIDE,CL 105 mmol/L (100-108); CREATININE 0.6 mg/dL (0.6-1.0); EST CRCL DRUG DOSING (CG) 115.14 mL/min; ESTIMATED GFR 113 mL/min (>60); GLUCOSE RANDOM 94 mg/dL (74-106); POTASSIUM,K 4.6 mmol/L (3.6-5.2); PROTEIN TOTAL,TP 6.1 g/dL (6.4-8.2); SODIUM,NA 139 mmol/L (140-148)
[2022-12-03 12:11] LABS: APPEARANCE,URINE CLEAR (CLEAR); BILIRUBIN,URINE NEGATIVE (NEGATIVE); COLOR,URINE YELLOW (YELLOW); GLUCOSE,URINE NEGATIVE (NEGATIVE); KETONES,URINE NEGATIVE (NEGATIVE); LEUKOCYTE ESTERASE,URINE NEGATIVE (NEGATIVE); NITRITE,URINE NEGATIVE (NEGATIVE); OCCULT BLOOD,URINE NEGATIVE (NEGATIVE); PH,URINE 5.5 (5.0-8.0); PROTEIN,URINE NEGATIVE (NEGATIVE); UROBILINOGEN,URINE 0.2 EU/dL (0.2-1.0)
[2022-12-03 12:22] LABS: AMORPHOUS SEDIMENT,URINE NOT SEEN; BACTERIA,URINE FEW; EPITHELIAL CELLS,URINE RARE; MUCUS,URINE FEW; RBC,URINE 0-5 (0-5); WBC,URINE 0-5 (0-5)
== END 2022-12-03 13:14 | disposition home or self-care (01) ==
LOC: JP.ED 09:55
DX: R11.2 Nausea with vomiting, unspecified (principal); R19.7 Diarrhea, unspecified; K43.9 Ventral hernia without obstruction or gangrene; F17.210 Nicotine dependence, cigarettes, uncomplicated; E66.9 Obesity, unspecified; Z68.34 Body mass index [BMI] 34.0-34.9, adult; Z86.16 Personal history of COVID-19; Z79.899 Other long term (current) drug therapy; Z88.5 Allergy status to narcotic agent; Z91.040 Latex allergy status
CPT/HCPCS: 36415; 74176; 80053; 81001; 81025; 83605; 83690; 85027; 96361; 96374; 96375; 99284; J1170; J2405; J7030

== ENCOUNTER 2022-12-27 08:04 | Inpatient (IN) | payer MEDICARE, MEDICAID ==
[~2022-12-27 08:04] MED LIST: Bupivacaine 0.5% 50 ML MDV ONE; Lidocaine 1% with EPINEPHrine 1:100,000 50 ML MDV ONE; Meropenem 500 MG SDV ONE
[2022-12-27] MEDS ORDERED: Scopolamine 1.5 MG Transdermal Patch TOP ONE (08:15)
[2022-12-27] MEDS ORDERED: fentaNYL 250 MCG/5 ML SDV ONE (09:00)
[2022-12-27] MEDS ORDERED: Dextrose 5%-Lactated Ringers 1,000 ML IV SCH (09:00)
[2022-12-27] MEDS ORDERED: Dexamethasone 4 MG/ML SDV ONE (09:01)
[2022-12-27] MEDS ORDERED: Neostigmine Methylsulfate 1 MG/ML 5 ML Syringe ONE (09:01)
[2022-12-27] MEDS ORDERED: Rocuronium 50 MG/5 ML Vial ONE (09:01)
[2022-12-27] MEDS ORDERED: Propofol 200 MG/20 ML SDV ONE (09:01)
[2022-12-27] MEDS ORDERED: Glycopyrrolate 0.2 MG/ML 5 ML MDV ONE (09:01)
[2022-12-27] MEDS ORDERED: Ondansetron 4 MG/2 ML SDV ONE (09:01)
[2022-12-27] MEDS ORDERED: Succinylcholine 200 MG/10 ML MDV ONE (09:01)
[2022-12-27] MEDS ORDERED: ceFAZolin 2 GM in Sodium Chloride 0.9% 50 ML IV ONE (09:15)
[2022-12-27] MEDS ORDERED: ceFAZolin 2 GM in Premix Bag 1 BAG IV ONE (09:15)
[2022-12-27] MEDS ORDERED: Ketamine 500 MG/5 ML MDV IV SCH (09:30)
[2022-12-27] MEDS ORDERED: Ketamine 18 MG in Sodium Chloride 0.9% 19.82 ML IV SCH (09:30)
[2022-12-27] MEDS ORDERED: Ropivacaine 50 ML, dexAMETHasone 8 MG, EPINEPHrine 0.4 MG, Sodium Chloride 0.9% 27.6 ML NERVRT SCH ×4 (09:30)
[2022-12-27] MEDS ORDERED: diphenhydrAMINE 25 MG Cap PO PRN (11:06)
[2022-12-27] MEDS ORDERED: diphenhydrAMINE 50 MG/ML SDV IVPUSH PRN ×2 (11:06→15:00)
[2022-12-27] MEDS ORDERED: Naloxone 0.4 MG/ML SDV IVPUSH PRN (11:06)
[2022-12-27] MEDS ORDERED: Ondansetron 4 MG/2 ML SDV IVPUSH PRN ×2 (11:06→15:00)
[2022-12-27] MEDS: HYDROmorphone/Normal Saline 6 MG/30 ML PCA Vial IV PRN (11:18)
[2022-12-27] MEDS ORDERED: fentaNYL 100 MCG/2 ML SDV ONE (12:54)
[2022-12-27] MEDS ORDERED: Linezolid 600 MG/300 ML Premix Bag IRR ONE (12:55)
[2022-12-27] MEDS ORDERED: Sugammadex Sodium 200 MG/2 ML VIAL ONE (13:28)
[2022-12-27] MEDS ORDERED: Metoclopramide 10 MG/2 ML SDV IVPUSH PRN (15:00)
[2022-12-27] MEDS ORDERED: hydrOXYzine HCl 50 MG/ML SDV IM PRN (15:00)
[2022-12-27] MEDS ORDERED: Pantoprazole 40 MG Vial IVPUSH SCH (15:00)
[2022-12-27] MEDS ORDERED: Labetalol 20 MG/4 ML Syringe IVPUSH PRN (15:00)
[2022-12-27] MEDS ORDERED: Acetaminophen 500 MG Tab PO PRN (15:00)
[2022-12-27] MEDS ORDERED: MVI, Adult with Vitamin K 10 ML, Thiamine 200 MG, Zinc/Copper/Manganese/Selenium 1 ML i... IV SCH ×4 (16:00)
[2022-12-27] MEDS: cefOXitin 2 GM in Sodium Chloride 0.9% 50 ML IV SCH ×2 (16:39→22:44)
[2022-12-27] MEDS: Sodium Ferric Gluconate Cmplex 250 MG in Sodium Chloride 0.9% 100 ML IV SCH (19:36)
[2022-12-27] MEDS: Acetaminophen 500 MG Tab PO SCH (20:27)
[2022-12-27] MEDS: Heparin Sodium 5,000 Units/ML Vial SUBCUT SCH (20:27)
[2022-12-27] MEDS: Doxepin 25 MG Cap PO SCH (20:28)
[2022-12-28] MEDS: Dextrose 5%-Lactated Ringers 1,000 ML IV SCH ×2 (00:28→07:34)
[2022-12-28] MEDS ORDERED: Iopamidol 612 MG/ML 30 ML SDV PO STA (02:18)
[2022-12-28] MEDS: cefOXitin 2 GM in Sodium Chloride 0.9% 50 ML IV SCH ×4 (03:09→21:24)
[2022-12-28] MEDS: Acetaminophen 500 MG Tab PO SCH ×3 (03:10→19:34)
[2022-12-28] MEDS: HYDROmorphone/Normal Saline 6 MG/30 ML PCA Vial IV PRN (04:40)
[2022-12-28] MEDS ORDERED: Ondansetron 4 MG Tab.DIS PO PRN (07:32)
[2022-12-28] MEDS: Heparin Sodium 5,000 Units/ML Vial SUBCUT SCH ×2 (07:35→20:47)
[2022-12-28] MEDS: Sertraline 50 MG Tab PO SCH (08:37)
[2022-12-28] MEDS: Celecoxib 200 MG Cap PO SCH ×2 (08:37→20:47)
[2022-12-28] MEDS: SCOPOLAMINE PATCH CHECK TOP SCH (08:38)
[2022-12-28] MEDS: Cyclobenzaprine 10 MG Tab PO PRN (11:39)
[2022-12-28] MEDS: Pantoprazole 40 MG Tab.CR PO SCH (14:29)
[2022-12-28] MEDS ORDERED: MVI, Adult with Vitamin K 10 ML, Thiamine 200 MG, Zinc/Copper/Manganese/Selenium 1 ML i... IV SCH ×4 (16:00)
[2022-12-28] MEDS: Sodium Ferric Gluconate Cmplex 250 MG in Sodium Chloride 0.9% 100 ML IV SCH (16:37)
[2022-12-28] MEDS: Doxepin 25 MG Cap PO SCH (21:24)
[2022-12-29] MEDS: Dextrose 5%-Lactated Ringers 1,000 ML IV SCH ×3 (02:31→23:16)
[2022-12-29] MEDS: Acetaminophen 500 MG Tab PO SCH ×3 (03:15→20:04)
[2022-12-29] MEDS: cefOXitin 2 GM in Sodium Chloride 0.9% 50 ML IV SCH ×2 (03:15→09:05)
[2022-12-29] MEDS: Cyclobenzaprine 10 MG Tab PO PRN ×2 (03:39→12:44)
[2022-12-29] MEDS: Heparin Sodium 5,000 Units/ML Vial SUBCUT SCH ×2 (07:46→20:04)
[2022-12-29] MEDS: Pantoprazole 40 MG Tab.CR PO SCH (07:46)
[2022-12-29] MEDS ORDERED: Cyanocobalamin (Vitamin B12) 1,000 MCG/ML SDV IM ONE (09:00)
[2022-12-29] MEDS: Docusate Sodium 100 MG Cap PO SCH ×2 (09:07→21:32)
[2022-12-29] MEDS: Bisacodyl 5 MG Tab PO SCH ×2 (09:07→21:33)
[2022-12-29] MEDS: Sertraline 50 MG Tab PO SCH (09:07)
[2022-12-29] MEDS: SCOPOLAMINE PATCH CHECK TOP SCH (09:07)
[2022-12-29] MEDS: Celecoxib 200 MG Cap PO SCH ×2 (09:07→21:32)
[2022-12-29] MEDS: HYDROmorphone/Normal Saline 6 MG/30 ML PCA Vial IV PRN (10:22)
[2022-12-29] MEDS: Doxepin 25 MG Cap PO SCH (21:33)
[2022-12-29] MEDS: Calcium Carbonate 500 MG Tab.Chew PO PRN (22:39)
[2022-12-30] MEDS: Acetaminophen 500 MG Tab PO SCH ×3 (04:19→20:49)
[2022-12-30] MEDS: Calcium Carbonate 500 MG Tab.Chew PO PRN (07:09)
[2022-12-30] MEDS: Pantoprazole 40 MG Tab.CR PO SCH (07:10)
[2022-12-30] MEDS: Heparin Sodium 5,000 Units/ML Vial SUBCUT SCH ×2 (07:10→20:49)
[2022-12-30] MEDS ORDERED: hydrOXYzine HCl 25 MG Tab PO PRN (07:20)
[2022-12-30] MEDS: Docusate Sodium 100 MG Cap PO SCH ×2 (08:14→20:48)
[2022-12-30] MEDS: Bisacodyl 5 MG Tab PO SCH ×2 (08:14→20:48)
[2022-12-30] MEDS: Celecoxib 200 MG Cap PO SCH ×2 (08:14→20:49)
[2022-12-30] MEDS: Sertraline 50 MG Tab PO SCH (08:14)
[2022-12-30] MEDS: oxyCODONE 5 MG Tab PO PRN ×2 (11:36→20:53)
[2022-12-30] MEDS: Cyclobenzaprine 10 MG Tab PO PRN (16:04)
[2022-12-30] MEDS: Doxepin 25 MG Cap PO SCH (20:49)
[2022-12-31] MEDS: Acetaminophen 500 MG Tab PO SCH ×2 (03:44→11:23)
[2022-12-31] MEDS: oxyCODONE 5 MG Tab PO PRN ×2 (03:51→11:23)
[2022-12-31 08:11] VITALS: BP 134/91; PULSE 76
[2022-12-31] MEDS: Pantoprazole 40 MG Tab.CR PO SCH (08:13)
[2022-12-31] MEDS: Bisacodyl 5 MG Tab PO SCH (08:13)
[2022-12-31] MEDS: Heparin Sodium 5,000 Units/ML Vial SUBCUT SCH (08:13)
[2022-12-31] MEDS: Celecoxib 200 MG Cap PO SCH (08:13)
[2022-12-31] MEDS: Sertraline 50 MG Tab PO SCH (08:13)
[2022-12-31] MEDS: Docusate Sodium 100 MG Cap PO SCH (08:13)
[2022-12-31] MEDS: Cyclobenzaprine 10 MG Tab PO PRN (08:17)
== END 2022-12-31 12:45 | disposition home or self-care (01) | DRG 330 ==
LOC: JP.SDS 08:04 → JP.MS 14:00
PROVIDERS: ADMIT Surgery; ATTEND Physician Assistant Medical
PROC: 0WUF0JZ Supplement Abdominal Wall with Synthetic Substitute, Open Approach (ICD-10-PCS; principal; 2022-12-27)
PROC: 0DB80ZZ Excision of Small Intestine, Open Approach (ICD-10-PCS; 2022-12-27)
PROC: 0DBW0ZZ Excision of Peritoneum, Open Approach (ICD-10-PCS; 2022-12-27)
PROC: 0DBP0ZZ Excision of Rectum, Open Approach (ICD-10-PCS; 2022-12-27)
PROC: 3E0M05Z Introduction of Adhesion Barrier into Peritoneal Cavity, Open Approach (ICD-10-PCS; 2022-12-27)
DX: K43.0 Incisional hernia with obstruction, without gangrene (principal); K56.600 Partial intestinal obstruction, unspecified as to cause; K95.89 Other complications of other bariatric procedure; M79.7 Fibromyalgia; E55.9 Vitamin D deficiency, unspecified; F39 Unspecified mood [affective] disorder; Z88.5 Allergy status to narcotic agent; Z91.040 Latex allergy status; Z90.49 Acquired absence of other specified parts of digestive tract
CPT/HCPCS: 74240; 74240-26; 81025; 88302; 88305; 88307; A9270-GY; C1713; C1781; C9113; J0131; J0171; J0330; J0690; J0694; J1100; J1170; J1644; J2020; J2185; J2405; J2704; J2710; J2795; J2916; J3010; J3411; J3420; J3490; J7121; Q9967

== ENCOUNTER 2023-01-08 14:55 | Inpatient (IN) | payer MEDICARE, MEDICAID ==
[2023-01-08] MEDS ORDERED: Sodium Chloride 0.9% 10 ML Syringe FLUSH PRN (16:47)
[2023-01-08] MEDS ORDERED: Ondansetron 4 MG/2 ML SDV IVPUSH ONE (16:47)
[2023-01-08] MEDS ORDERED: HYDROmorphone 0.5 MG/0.5 ML Syringe IVPUSH ONE (16:50)
[2023-01-08 16:59] LABS: BASOPHILS ABSOLUTE AUTO 0.06 K/uL (0.00-0.10); BASOPHILS PERCENT AUTO 0.7 % (0.1-1.3); EOSINOPHILS ABSOLUTE AUTO 0.92 K/uL (0.00-0.40); HEMATOCRIT 34.9 % (34.3-46.0); HEMOGLOBIN 10.9 g/dL (11.2-15.5); IMMATURE GRAN ABSOLUTE AUTO 0.04 K/uL (0.00-0.23); IMMATURE GRAN PERCENT AUTO 0.4 % (0.0-0.7); LYMPHOCYTES ABSOLUTE AUTO 1.79 K/uL (0.8-3.3); LYMPHOCYTES PERCENT AUTO 19.5 % (11.4-47.7); MEAN CORPUSCULAR HEMOGLOBIN 28.8 pg (31.6-35.5); MEAN CORPUSCULAR HGB CONC 31.2 g/dL (31.6-35.5); MEAN CORPUSCULAR VOLUME 92.3 fL (81.4-99.0); MONOCYTES ABSOLUTE AUTO 0.53 K/uL (0.20-0.90); MONOCYTES PERCENT AUTO 5.8 % (3.3-12.6); NEUTROPHILS ABSOLUTE AUTO 5.84 K/uL (1.0-7.6); NEUTROPHILS PERCENT AUTO 63.6 % (40.0-78.1); PLATELET COUNT,PLT 250 K/uL (130-375); RED BLOOD CELL COUNT 3.78 M/uL (3.77-5.24); WHITE BLOOD CELL COUNT,WBC 9.2 K/uL (3.2-11.0)
[2023-01-08 17:20] LABS: A/G RATIO 0.7 (1.2-2.2); ALANINE AMINOTRANSFERASE,ALT 17 U/L (12-78); ALBUMIN 2.5 g/dL (3.4-5.0); ALKALINE PHOSPHATASE 68 U/L (46-116); ASPARTATE AMNIOTRANSFERASE,AST 12 U/L (15-37); BILIRUBIN TOTAL 0.3 mg/dL (0.2-1.0); BLOOD UREA NITROGEN,BUN 7 mg/dL (7-18); C-REACTIVE PROTEIN 2.15 mg/dL (0.0-0.3); CALCIUM 8.2 mg/dL (8.5-10.1); CARBON DIOXIDE,CO2 31 mmol/L (21-32); CHLORIDE,CL 103 mmol/L (100-108); CREATININE 0.7 mg/dL (0.6-1.0); EST CRCL DRUG DOSING (CG) 98.69 mL/min; ESTIMATED GFR 109 mL/min (>60); GLUCOSE RANDOM 96 mg/dL (74-106); LIPASE 51 U/L (73-393); POTASSIUM,K 4.3 mmol/L (3.6-5.2); PROTEIN TOTAL,TP 5.9 g/dL (6.4-8.2); SODIUM,NA 138 mmol/L (140-148)
[2023-01-08 17:21] LABS: ANION GAP 8.3 mmol/L (5.0-14.0)
[2023-01-08] MEDS ORDERED: Iopamidol 612 MG/ML 100 ML Bottle IV ONE (17:29)
[2023-01-08] MEDS ORDERED: Sodium Chloride 0.9% 10 ML Syringe FLUSH ONE (17:29)
[2023-01-08] MEDS ORDERED: Sodium Chloride 0.9% 50 ML IV ONE (17:29)
[2023-01-08] MEDS ORDERED: Nicotine 14 MG/24 Hr Patch TRDERM PRN (20:45)
[2023-01-08] MEDS ORDERED: Ondansetron 4 MG/2 ML SDV IV PRN (20:45)
[2023-01-08] MEDS ORDERED: Ondansetron 4 MG Tab.DIS PO PRN (20:45)
[2023-01-08] MEDS ORDERED: Melatonin 3 MG Tab PO PRN (20:45)
[2023-01-08] MEDS ORDERED: Sennosides/Docusate Sodium 50-8.6 MG Tab PO PRN (20:45)
[2023-01-08] MEDS ORDERED: Acetaminophen 325 MG Tab PO PRN (20:45)
[2023-01-08] MEDS: HYDROmorphone 0.5 MG/0.5 ML Syringe IVPUSH PRN ×2 (20:52→22:39)
[2023-01-08] MEDS ORDERED: Ondansetron 4 MG/2 ML SDV IVPUSH PRN (20:59)
[2023-01-08] MEDS: Lactated Ringers 1,000 ML IV SCH (21:00)
[2023-01-08] MEDS: Celecoxib 200 MG Cap PO SCH (22:29)
[2023-01-08] MEDS: Cyclobenzaprine 10 MG Tab PO SCH (22:29)
[2023-01-08] MEDS: Magnesium Hydroxide 400 MG/5 ML Susp 30 ML Cup PO PRN (22:31)
[2023-01-08] MEDS: Doxepin 25 MG Cap PO SCH (22:31)
[2023-01-09] MEDS: Lactated Ringers 1,000 ML IV SCH ×3 (05:00→21:02)
[2023-01-09 05:16] LABS: BASOPHILS ABSOLUTE AUTO 0.06 K/uL (0.00-0.10); EOSINOPHILS ABSOLUTE AUTO 0.92 K/uL (0.00-0.40); EOSINOPHILS PERCENT AUTO 14.6 % (0.0-5.4); HEMATOCRIT 30.8 % (34.3-46.0); HEMOGLOBIN 9.8 g/dL (11.2-15.5); IMMATURE GRAN PERCENT AUTO 0.2 % (0.0-0.7); LYMPHOCYTES ABSOLUTE AUTO 1.87 K/uL (0.8-3.3); LYMPHOCYTES PERCENT AUTO 29.7 % (11.4-47.7); MEAN CORPUSCULAR HEMOGLOBIN 29.5 pg (31.6-35.5); MEAN CORPUSCULAR HGB CONC 31.8 g/dL (31.6-35.5); MEAN CORPUSCULAR VOLUME 92.8 fL (81.4-99.0); MONOCYTES ABSOLUTE AUTO 0.51 K/uL (0.20-0.90); MONOCYTES PERCENT AUTO 8.1 % (3.3-12.6); NEUTROPHILS ABSOLUTE AUTO 2.92 K/uL (1.0-7.6); NEUTROPHILS PERCENT AUTO 46.4 % (40.0-78.1); PLATELET COUNT,PLT 208 K/uL (130-375); RED BLOOD CELL COUNT 3.32 M/uL (3.77-5.24); WHITE BLOOD CELL COUNT,WBC 6.3 K/uL (3.2-11.0)
[2023-01-09 05:17] LABS: IMMATURE GRAN ABSOLUTE AUTO 0.01 K/uL (0.00-0.23)
[2023-01-09 05:35] LABS: ANION GAP 2.9 mmol/L (5.0-14.0); CALCIUM 7.9 mg/dL (8.5-10.1); CREATININE 0.7 mg/dL (0.6-1.0); EST CRCL DRUG DOSING (CG) 98.69 mL/min; PHOSPHORUS 4.2 mg/dL (2.5-4.9); POTASSIUM,K 3.8 mmol/L (3.6-5.2)
[2023-01-09] MEDS: HYDROmorphone 0.5 MG/0.5 ML Syringe IVPUSH PRN ×2 (07:42→19:38)
[2023-01-09] MEDS: Pantoprazole 40 MG Tab.CR PO SCH (07:49)
[2023-01-09] MEDS ORDERED: methylPREDNISolone Sod Succ 60 MG in Dextrose 5% in Water 100 ML IV SCH ×2 (08:00)
[2023-01-09] MEDS: Celecoxib 200 MG Cap PO SCH ×2 (09:09→21:00)
[2023-01-09] MEDS: methylPREDNISolone Sodium Succinate 125 MG/2 ML SDV IV SCH ×3 (09:09→19:42)
[2023-01-09] MEDS: Sertraline 50 MG Tab PO SCH (09:09)
[2023-01-09] MEDS: Cyclobenzaprine 10 MG Tab PO SCH (21:00)
[2023-01-09] MEDS: Doxepin 25 MG Cap PO SCH (21:00)
[2023-01-10] MEDS: methylPREDNISolone Sodium Succinate 125 MG/2 ML SDV IV SCH ×4 (02:53→19:26)
[2023-01-10] MEDS: Lactated Ringers 1,000 ML IV SCH ×3 (04:37→20:45)
[2023-01-10] MEDS: Magnesium Hydroxide 400 MG/5 ML Susp 30 ML Cup PO PRN (05:30)
[2023-01-10] MEDS: Pantoprazole 40 MG Tab.CR PO SCH (09:20)
[2023-01-10] MEDS: Celecoxib 200 MG Cap PO SCH ×2 (09:22→21:09)
[2023-01-10] MEDS: Docusate Sodium 100 MG Cap PO SCH ×2 (09:23→21:06)
[2023-01-10] MEDS: Sertraline 50 MG Tab PO SCH (09:23)
[2023-01-10] MEDS: Bisacodyl 5 MG Tab PO SCH ×2 (09:23→21:05)
[2023-01-10] MEDS: Polyethylene Glycol 3350 Powder 17 GM Packet PO SCH (09:37)
[2023-01-10] MEDS: HYDROmorphone 0.5 MG/0.5 ML Syringe IVPUSH PRN ×2 (11:54→16:52)
[2023-01-10] MEDS ORDERED: HYDROmorphone 2 MG Tab PO PRN (17:22)
[2023-01-10] MEDS: Doxepin 25 MG Cap PO SCH (21:05)
[2023-01-10] MEDS: Cyclobenzaprine 10 MG Tab PO SCH (21:06)
[2023-01-11] MEDS: methylPREDNISolone Sodium Succinate 125 MG/2 ML SDV IV SCH ×2 (01:43→09:28)
[2023-01-11 02:34] VITALS: PULSE 62
[2023-01-11] MEDS: Lactated Ringers 1,000 ML IV SCH (04:54)
[2023-01-11] MEDS: Pantoprazole 40 MG Tab.CR PO SCH (09:28)
[2023-01-11] MEDS: Sertraline 50 MG Tab PO SCH (09:28)
[2023-01-11] MEDS: Bisacodyl 5 MG Tab PO SCH (09:28)
[2023-01-11] MEDS: Celecoxib 200 MG Cap PO SCH (09:28)
[2023-01-11 09:43] VITALS: BP 137/89
[2023-01-11] MEDS: Docusate Sodium 100 MG Cap PO SCH (09:44)
[2023-01-11] MEDS: Polyethylene Glycol 3350 Powder 17 GM Packet PO SCH (09:44)
== END 2023-01-11 13:00 | disposition home or self-care (01) | DRG 390 ==
LOC: JP.ED 14:55 → JP.MS 19:55
PROVIDERS: ADMIT Surgery; ATTEND Surgery
DX: K56.600 Partial intestinal obstruction, unspecified as to cause (principal); K21.9 Gastro-esophageal reflux disease without esophagitis; F32.A Depression, unspecified; E66.9 Obesity, unspecified; F17.210 Nicotine dependence, cigarettes, uncomplicated; F43.10 Post-traumatic stress disorder, unspecified; F41.9 Anxiety disorder, unspecified; Z20.822 Contact with and (suspected) exposure to COVID-19; Z98.890 Other specified postprocedural states; Z90.49 Acquired absence of other specified parts of digestive tract; Z98.84 Bariatric surgery status; Z86.16 Personal history of COVID-19; Z88.5 Allergy status to narcotic agent; Z91.040 Latex allergy status; Z79.899 Other long term (current) drug therapy; Z68.33 Body mass index [BMI] 33.0-33.9, adult
CPT/HCPCS: 36415; 74019; 74019-26; 74177; 80048; 80053; 82947; 83690; 83735; 84100; 85025; 86140; 96374; 96375; 99285; 99285-25; A9270-GY; J1170; J2405; J2930; J3490; J7120; Q9967; U0002

== ENCOUNTER 2023-01-30 12:58 | Inpatient (IN) | payer MEDICARE, MEDICAID ==
[2023-01-30] MEDS ORDERED: Iopamidol 612 MG/ML 100 ML Bottle IV ONE (13:28)
[2023-01-30] MEDS ORDERED: Sodium Chloride 0.9% 50 ML IV SCH (13:30)
[2023-01-30] MEDS ORDERED: Acetaminophen 650 MG Supp RECTAL PRN (13:47)
[2023-01-30] MEDS ORDERED: Ondansetron 4 MG/2 ML SDV IVPUSH PRN (13:48)
[2023-01-30] MEDS ORDERED: Pantoprazole 40 MG Vial IV SCH (15:00)
[2023-01-30] MEDS ORDERED: Bisacodyl 10 MG Supp RECTAL ONE (16:00)
[2023-01-30] MEDS ORDERED: Bisacodyl 10 MG Supp RECTAL PRN (16:01)
[2023-01-30] MEDS ORDERED: HYDROmorphone 0.5 MG/0.5 ML Syringe IVPUSH PRN (16:02)
[2023-01-30] MEDS: Acetaminophen 325 MG Tab PO PRN (16:03)
[2023-01-30] MEDS ORDERED: hydrOXYzine HCl 25 MG Tab PO PRN (16:11)
[2023-01-30] MEDS: Cyclobenzaprine 10 MG Tab PO PRN (17:02)
[2023-01-30] MEDS: Sodium Phosphate,Monobasic/Sodium Phosphate,Dibasic Enema 133 ML Bottle RECTAL SCH ×2 (17:04→21:11)
[2023-01-30] MEDS: Doxepin 25 MG Cap PO SCH (21:11)
[2023-01-30] MEDS: Dextrose 5%-Lactated Ringers 1,000 ML IV SCH (22:33)
[2023-01-31] MEDS: Acetaminophen 325 MG Tab PO PRN ×4 (01:46→19:49)
[2023-01-31 04:33] LABS: BASOPHILS ABSOLUTE AUTO 0.04 K/uL (0.00-0.10); BASOPHILS PERCENT AUTO 0.7 % (0.1-1.3); EOSINOPHILS ABSOLUTE AUTO 0.52 K/uL (0.00-0.40); EOSINOPHILS PERCENT AUTO 9.1 % (0.0-5.4); HEMATOCRIT 30.4 % (34.3-46.0); HEMOGLOBIN 9.6 g/dL (11.2-15.5); IMMATURE GRAN PERCENT AUTO 0.2 % (0.0-0.7); LYMPHOCYTES ABSOLUTE AUTO 1.88 K/uL (0.8-3.3); LYMPHOCYTES PERCENT AUTO 32.8 % (11.4-47.7); MEAN CORPUSCULAR HEMOGLOBIN 28.7 pg (31.6-35.5); MEAN CORPUSCULAR HGB CONC 31.6 g/dL (31.6-35.5); MONOCYTES ABSOLUTE AUTO 0.46 K/uL (0.20-0.90); NEUTROPHILS ABSOLUTE AUTO 2.82 K/uL (1.0-7.6); NEUTROPHILS PERCENT AUTO 49.2 % (40.0-78.1); PLATELET COUNT,PLT 214 K/uL (130-375); RED BLOOD CELL COUNT 3.34 M/uL (3.77-5.24); WHITE BLOOD CELL COUNT,WBC 5.7 K/uL (3.2-11.0)
[2023-01-31 04:38] LABS: IMMATURE GRAN ABSOLUTE AUTO 0.01 K/uL (0.00-0.23)
[2023-01-31 04:54] LABS: A/G RATIO 0.7 (1.2-2.2); ALANINE AMINOTRANSFERASE,ALT 15 U/L (12-78); ALBUMIN 2.1 g/dL (3.4-5.0); ALKALINE PHOSPHATASE 63 U/L (46-116); ASPARTATE AMNIOTRANSFERASE,AST 17 U/L (15-37); BILIRUBIN TOTAL 0.2 mg/dL (0.2-1.0); BLOOD UREA NITROGEN,BUN 13 mg/dL (7-18); CALCIUM 8.1 mg/dL (8.5-10.1); CARBON DIOXIDE,CO2 29 mmol/L (21-32); CHLORIDE,CL 109 mmol/L (100-108); CREATININE 0.6 mg/dL (0.6-1.0); EST CRCL DRUG DOSING (CG) 115.14 mL/min; ESTIMATED GFR 113 mL/min (>60); GLUCOSE RANDOM 106 mg/dL (74-106); MAGNESIUM 1.7 mg/dL (1.8-2.4); PHOSPHORUS 4.8 mg/dL (2.5-4.9); POTASSIUM,K 3.8 mmol/L (3.6-5.2); PROTEIN TOTAL,TP 5.3 g/dL (6.4-8.2); SODIUM,NA 142 mmol/L (140-148)
[2023-01-31 05:00] LABS: ANION GAP 7.8 mmol/L (5.0-14.0)
[2023-01-31] MEDS: Dextrose 5%-Lactated Ringers 1,000 ML IV SCH ×3 (05:21→21:05)
[2023-01-31] MEDS: Sertraline 50 MG Tab PO SCH (08:58)
[2023-01-31] MEDS: Lubiprostone 24 MCG Cap PO SCH ×2 (08:58→17:04)
[2023-01-31] MEDS ORDERED: Calcium Carbonate 500 MG Tab.Chew PO PRN (10:46)
[2023-01-31] MEDS: Pantoprazole 40 MG Tab.CR PO SCH (14:26)
[2023-01-31] MEDS: Doxepin 25 MG Cap PO SCH (21:07)
[2023-01-31] MEDS: Cyclobenzaprine 10 MG Tab PO PRN (21:11)
[2023-02-01] MEDS: Dextrose 5%-Lactated Ringers 1,000 ML IV SCH (03:43)
[2023-02-01 04:31] LABS: HEMATOCRIT 29.5 % (34.3-46.0); HEMOGLOBIN 9.3 g/dL (11.2-15.5); MEAN CORPUSCULAR HEMOGLOBIN 28.5 pg (31.6-35.5); MEAN CORPUSCULAR HGB CONC 31.5 g/dL (31.6-35.5); MEAN CORPUSCULAR VOLUME 90.5 fL (81.4-99.0); RED BLOOD CELL COUNT 3.26 M/uL (3.77-5.24); WHITE BLOOD CELL COUNT,WBC 4.8 K/uL (3.2-11.0)
[2023-02-01 04:56] LABS: A/G RATIO 0.7 (1.2-2.2); ALANINE AMINOTRANSFERASE,ALT 14 U/L (12-78); ALKALINE PHOSPHATASE 58 U/L (46-116); ASPARTATE AMNIOTRANSFERASE,AST 13 U/L (15-37); BILIRUBIN TOTAL 0.2 mg/dL (0.2-1.0); BLOOD UREA NITROGEN,BUN 7 mg/dL (7-18); CARBON DIOXIDE,CO2 29 mmol/L (21-32); CHLORIDE,CL 111 mmol/L (100-108); CREATININE 0.6 mg/dL (0.6-1.0); EST CRCL DRUG DOSING (CG) 114.84 mL/min; ESTIMATED GFR 113 mL/min (>60); GLUCOSE RANDOM 97 mg/dL (74-106); MAGNESIUM 1.6 mg/dL (1.8-2.4); PHOSPHORUS 4.4 mg/dL (2.5-4.9); POTASSIUM,K 3.7 mmol/L (3.6-5.2); SODIUM,NA 145 mmol/L (140-148)
[2023-02-01 05:04] LABS: ANION GAP 8.7 mmol/L (5.0-14.0)
[2023-02-01 05:06] VITALS: BP 105/67; PULSE 67
[2023-02-01] MEDS: Pantoprazole 40 MG Tab.CR PO SCH (07:53)
[2023-02-01] MEDS: Lubiprostone 24 MCG Cap PO SCH (07:53)
[2023-02-01] MEDS: Sertraline 50 MG Tab PO SCH (08:04)
== END 2023-02-01 11:20 | disposition home or self-care (01) | DRG 394 ==
LOC: JP.MS 12:58
PROVIDERS: ADMIT Physician Assistant Medical; ATTEND Physician Assistant Medical
DX: K59.39 Other megacolon (principal); K91.2 Postsurgical malabsorption, not elsewhere classified; Z98.84 Bariatric surgery status; K59.09 Other constipation; E61.1 Iron deficiency; E53.8 Deficiency of other specified B group vitamins; E55.9 Vitamin D deficiency, unspecified; Z98.890 Other specified postprocedural states; Z91.040 Latex allergy status
CPT/HCPCS: 36415; 74019; 74019-26; 74177; 74177-26; 80053; 83735; 84100; 85025; 85027; A9270-GY; J0456; J1170; J3490; J7121; Q9967; U0002